=== PATIENT | female | born 1960 | race Caucasian/White ===

== ENCOUNTER 2022-07-31 07:09 | Inpatient (IN) | payer BC ==
[~2022-07-31] VITALS: Ht 157.5 cm; Wt 117.0 kg
[2022-07-31 08:09] LABS: Basophils # (auto) 0 10 ^3/uL (0-0.2); Basophils % (auto) 0.6 % (0.0-2.0); Eosinophils # (auto) 0 10 ^3/uL (0-0.8); Hemoglobin 13.9 g/dL (12.2-16.2); Lymphocytes # (auto) 3.5 10 ^3/uL (0.4-5.4); Lymphocytes % (auto) 47.4 % (10.0-50.0); Mean Corpuscular Hemoglobin 31.7 pg (28.0-32.0); Mean Corpuscular Hgb Conc. 33.8 g/dL (32.0-36.0); Mean Corpuscular Volume 93.7 fL (80.0-100.0); Monocytes # (auto) 0.7 10 ^3/uL (0-1.3); Monocytes % (auto) 9.6 % (0.0-12.0); Neutrophils # (auto) 3.1 10 ^3/uL (1.6-8.6); Neutrophils % (auto) 42.4 % (37.0-80.0); Nucleated Red Blood Cells % 0.4 %; Red Blood Cells 4.37 10^6/uL (4.0-5.20); Red Cell Distribution Width 13.1 % (11.8-14.3); White Blood Cell 7.3 10^3/uL (4.4-10.8)
[2022-07-31] MEDS ORDERED: ONDANSETRON HCL 4 MG/2 ML VIAL IV ONE (09:15)
[2022-07-31] MEDS ORDERED: MORPHINE SULFATE INJ 2 MG/ml SYRG IV ONE (09:15)
[2022-07-31 09:28] LABS: Potassium 3.3 mmol/L (3.5-5.1)
[2022-07-31 09:29] LABS: Albumin 3.3 g/dL (3.4-5.0); BUN/Creatinine Ratio 23.2; Bilirubin, Total 0.3 mg/dL (0.2-1.0); Calcium 8.8 mg/dL (8.5-10.1); Total Protein 6.4 g/dL (6.4-8.2)
[2022-07-31] MEDS ORDERED: SODIUM CHLORIDE 0.9% 1,000 ML IV ONE (10:00)
[2022-07-31] MEDS ORDERED: SODIUM CHLORIDE 0.9% 500 ML IV ONE (10:00)
[2022-07-31] MEDS ORDERED: NITROGLYCERIN 0.4 MG SL TAB SL PRN (11:00)
[2022-07-31] MEDS ORDERED: KETOROLAC TROMETH 30 MG/ML 1ML VIAL IV PRN (11:00)
[2022-07-31] MEDS ORDERED: DEXTROSE (50%) 50ML SYRG IV PRN (11:00)
[2022-07-31] MEDS ORDERED: MORPHINE SULFATE INJ 2 MG/ml SYRG IV PRN (11:00)
[2022-07-31] MEDS: ACCU-CHEK COMFORT CURVE STRIP VI SCH ×3 (12:27→22:50)
[2022-07-31] MEDS: InsuLIN REG 1unit/0.01ml Soln (100units/ml) SC SCH ×3 (12:30→22:49)
[2022-07-31] MEDS: IPRATROPIUM 0.5 MG PO SCH ×2 (14:45→22:00)
[2022-07-31] MEDS: ALBUTEROL 2.5 MG PO SCH ×2 (14:45→22:00)
[2022-07-31] MEDS ORDERED: ACETAMINOPHEN 500 MG TAB PO PRN (15:45)
[2022-07-31] MEDS: PHENobarbital 32.4 MG TAB PO SCH ×2 (15:59→23:06)
[2022-07-31] MEDS ORDERED: IPRATROPIUM BROM 0.5 MG/2.5ML INH SOL NEB ONE (16:15)
[2022-07-31] MEDS ORDERED: ALBUTEROL SULF 2.5 MG/0.5ML(0.5%) NEB SOLN NEB ONE (16:15)
[2022-07-31] MEDS: INSULIN LANTUS (GLARGINE) 1 /0.01ml (100units/ml) SC SCH (22:49)
[2022-07-31] MEDS ORDERED: POTASSIUM CHL 20 Meq TABLET PO ONE (23:00)
[2022-07-31] MEDS: PREGABALIN 25 MG CAP PO SCH (23:06)
[2022-07-31] MEDS: GABAPENTIN 400 MG CAP PO SCH (23:06)
[2022-07-31 23:50] VITALS: BP 111/75
[2022-08-01] VITALS (8 sets, daily range): BP systolic 103–145; BP diastolic 56–77
[2022-08-01] MEDS ORDERED: LEVO50TA7 PO (01:29)
[2022-08-01] MEDS ORDERED: FLUT500M2 (01:29)
[2022-08-01] MEDS ORDERED: HYDR-4611 (01:29)
[2022-08-01] MEDS ORDERED: ALBU108A5 INH (01:29)
[2022-08-01] MEDS ORDERED: HYDR-4072 PO (01:29)
[2022-08-01] MEDS ORDERED: PREG-109 PO (01:29)
[2022-08-01] MEDS ORDERED: ZAFI1TAB3 PO (01:29)
[2022-08-01] MEDS ORDERED: PRED20TA2 PO (01:29)
[2022-08-01] MEDS ORDERED: ATEN25TA PO (01:29)
[2022-08-01] MEDS ORDERED: [UNRECOGNIZED DRUG - CODE] PO (01:29)
[2022-08-01] MEDS ORDERED: ATOR20TA50 PO (01:29)
[2022-08-01] MEDS ORDERED: GABA400C11 PO (01:29)
[2022-08-01] MEDS ORDERED: PHEN-1148 PO (01:29)
[2022-08-01] MEDS ORDERED: FURO40TA4 PO (01:29)
[2022-08-01] MEDS ORDERED: LORA1TAB23 (01:29)
[2022-08-01] MEDS ORDERED: RABE20TA19 (01:29)
[2022-08-01] MEDS ORDERED: [UNRECOGNIZED DRUG - CODE] SC (01:29)
[2022-08-01] MEDS ORDERED: [UNRECOGNIZED DRUG - CODE] XX (01:29)
[2022-08-01] MEDS ORDERED: POTA-180 PO (01:29)
[2022-08-01] MEDS ORDERED: FLUC100T34 PO (01:29)
[2022-08-01] MEDS ORDERED: OMEP-445 (01:29)
[2022-08-01] MEDS ORDERED: GLUC-244 (01:29)
[2022-08-01] MEDS ORDERED: INSUINJ37 SC (01:29)
[2022-08-01] MEDS ORDERED: RANO1000 PO (01:29)
[2022-08-01] MEDS ORDERED: MOME1SPR2 NAS (01:29)
[2022-08-01] MEDS ORDERED: [UNRECOGNIZED DRUG - CODE] SC (01:29)
[2022-08-01 05:58] LABS: Basophils # (auto) 0 10 ^3/uL (0-0.2); Basophils % (auto) 0.6 % (0.0-2.0); Eosinophils # (auto) 0 10 ^3/uL (0-0.8); Hematocrit 39.3 % (36.0-46.0); Hemoglobin 13.2 g/dL (12.2-16.2); Lymphocytes # (auto) 3.6 10 ^3/uL (0.4-5.4); Lymphocytes % (auto) 47.6 % (10.0-50.0); Mean Corpuscular Hemoglobin 31.4 pg (28.0-32.0); Mean Corpuscular Hgb Conc. 33.6 g/dL (32.0-36.0); Mean Corpuscular Volume 93.6 fL (80.0-100.0); Monocytes # (auto) 0.8 10 ^3/uL (0-1.3); Monocytes % (auto) 10.1 % (0.0-12.0); Neutrophils # (auto) 3.2 10 ^3/uL (1.6-8.6); Neutrophils % (auto) 41.7 % (37.0-80.0); Nucleated Red Blood Cells % 0.4 %; Red Cell Distribution Width 13.2 % (11.8-14.3); White Blood Cell 7.6 10^3/uL (4.4-10.8)
[2022-08-01] MEDS: PHENobarbital 32.4 MG TAB PO SCH ×2 (06:00→22:26)
[2022-08-01] MEDS: ALBUTEROL 2.5 MG PO SCH (06:00)
[2022-08-01] MEDS: IPRATROPIUM 0.5 MG PO SCH (06:00)
[2022-08-01 06:11] LABS: Urine Bacteria FEW /hpf (None Seen); Urine Blood Negative /uL (Negative); Urine Specific Gravity 1.007 (1.001-1.035); Urine WBC 6 /hpf (0 - 5)
[2022-08-01] MEDS: ACCU-CHEK COMFORT CURVE STRIP VI SCH ×4 (06:12→22:30)
[2022-08-01] MEDS: InsuLIN REG 1unit/0.01ml Soln (100units/ml) SC SCH ×4 (06:15→22:29)
[2022-08-01 06:19] LABS: Potassium 4.4 mmol/L (3.5-5.1)
[2022-08-01 06:27] LABS: Albumin 3.3 g/dL (3.4-5.0); Calcium 9.2 mg/dL (8.5-10.1)
[2022-08-01 06:56] LABS: Bilirubin, Total 0.3 mg/dL (0.2-1.0); Total Protein 6.6 g/dL (6.4-8.2)
[2022-08-01] MEDS ORDERED: GABA400C PO (09:19)
[2022-08-01] MEDS: cefTRIAXone 1GM/50ML D5W 50 ML IV SCH (09:34)
[2022-08-01] MEDS: PREGABALIN 25 MG CAP PO SCH ×2 (09:35→22:27)
[2022-08-01] MEDS: GABAPENTIN 400 MG CAP PO SCH ×3 (09:35→22:27)
[2022-08-01] MEDS: PANTOPRAZOLE 40 MG TAB PO SCH (09:35)
[2022-08-01] MEDS: HYDROcodone-ACET 10/325MG TAB PO PRN (10:30)
[2022-08-01] MEDS: INSULIN LANTUS (GLARGINE) 1 /0.01ml (100units/ml) SC SCH ×2 (10:33→22:30)
[2022-08-01] MEDS: IPRATROPIUM BROM 0.5 MG/2.5ML INH SOL NEB SCH ×2 (14:24→21:47)
[2022-08-01] MEDS: ALBUTEROL SULF 2.5 MG/0.5ML(0.5%) NEB SOLN NEB SCH ×2 (14:25→21:47)
[2022-08-02] VITALS (7 sets, daily range): BP systolic 103–159; BP diastolic 64–98
[2022-08-02 06:23] LABS: Basophils # (auto) 0.1 10 ^3/uL (0-0.2); Basophils % (auto) 0.8 % (0.0-2.0); Eosinophils # (auto) 0 10 ^3/uL (0-0.8); Hemoglobin 13.9 g/dL (12.2-16.2); Lymphocytes # (auto) 3.1 10 ^3/uL (0.4-5.4); Lymphocytes % (auto) 47.3 % (10.0-50.0); Mean Corpuscular Hemoglobin 31.9 pg (28.0-32.0); Monocytes # (auto) 0.8 10 ^3/uL (0-1.3); Neutrophils # (auto) 2.7 10 ^3/uL (1.6-8.6); Neutrophils % (auto) 39.9 % (37.0-80.0); Nucleated Red Blood Cells % 0.9 %; Red Blood Cells 4.36 10^6/uL (4.0-5.20); Red Cell Distribution Width 13.2 % (11.8-14.3); White Blood Cell 6.6 10^3/uL (4.4-10.8)
[2022-08-02] MEDS: GABAPENTIN 400 MG CAP PO SCH ×3 (06:27→21:58)
[2022-08-02] MEDS: InsuLIN REG 1unit/0.01ml Soln (100units/ml) SC SCH ×4 (06:27→22:04)
[2022-08-02] MEDS: HYDROcodone-ACET 10/325MG TAB PO PRN ×3 (06:28→18:51)
[2022-08-02] MEDS: ACCU-CHEK COMFORT CURVE STRIP VI SCH ×4 (06:28→21:59)
[2022-08-02 07:07] LABS: Albumin 3.7 g/dL (3.4-5.0); BUN/Creatinine Ratio 13.5; Bilirubin, Total 0.3 mg/dL (0.2-1.0); Calcium 9.7 mg/dL (8.5-10.1); Potassium 4.5 mmol/L (3.5-5.1); Total Protein 6.9 g/dL (6.4-8.2)
[2022-08-02] MEDS: ALBUTEROL SULF 2.5 MG/0.5ML(0.5%) NEB SOLN NEB SCH ×3 (07:16→22:56)
[2022-08-02] MEDS: IPRATROPIUM BROM 0.5 MG/2.5ML INH SOL NEB SCH ×3 (07:16→22:56)
[2022-08-02] MEDS: PANTOPRAZOLE 40 MG TAB PO SCH (10:46)
[2022-08-02] MEDS: PREGABALIN 25 MG CAP PO SCH ×2 (10:47→21:57)
[2022-08-02] MEDS: cefTRIAXone 1GM/50ML D5W 50 ML IV SCH (10:49)
[2022-08-02] MEDS: INSULIN LANTUS (GLARGINE) 1 /0.01ml (100units/ml) SC SCH ×2 (11:05→22:03)
[2022-08-02] MEDS: PHENobarbital 32.4 MG TAB PO SCH (21:58)
[2022-08-03] VITALS (7 sets, daily range): BP systolic 118–162; BP diastolic 75–90
[2022-08-03] MEDS: GABAPENTIN 400 MG CAP PO SCH ×4 (05:49→21:36)
[2022-08-03 06:21] LABS: Basophils # (auto) 0 10 ^3/uL (0-0.2); Basophils % (auto) 0.4 % (0.0-2.0); Eosinophils # (auto) 0 10 ^3/uL (0-0.8); Hematocrit 42.9 % (36.0-46.0); Hemoglobin 14.5 g/dL (12.2-16.2); Lymphocytes # (auto) 4.5 10 ^3/uL (0.4-5.4); Lymphocytes % (auto) 48.9 % (10.0-50.0); Mean Corpuscular Hgb Conc. 33.9 g/dL (32.0-36.0); Mean Corpuscular Volume 94.5 fL (80.0-100.0); Monocytes % (auto) 10.7 % (0.0-12.0); Neutrophils # (auto) 3.6 10 ^3/uL (1.6-8.6); Nucleated Red Blood Cells % 0.2 %; Red Blood Cells 4.54 10^6/uL (4.0-5.20); Red Cell Distribution Width 13.4 % (11.8-14.3); White Blood Cell 9.1 10^3/uL (4.4-10.8)
[2022-08-03] MEDS: ACCU-CHEK COMFORT CURVE STRIP VI SCH ×4 (06:31→21:35)
[2022-08-03] MEDS: InsuLIN REG 1unit/0.01ml Soln (100units/ml) SC SCH ×4 (06:32→21:37)
[2022-08-03] MEDS: IPRATROPIUM BROM 0.5 MG/2.5ML INH SOL NEB SCH ×3 (07:02→22:34)
[2022-08-03] MEDS: ALBUTEROL SULF 2.5 MG/0.5ML(0.5%) NEB SOLN NEB SCH ×3 (07:02→22:34)
[2022-08-03 08:14] LABS: Albumin 3.8 g/dL (3.4-5.0); BUN/Creatinine Ratio 14.9; Bilirubin, Total 0.3 mg/dL (0.2-1.0); Calcium 9.8 mg/dL (8.5-10.1); Potassium 4.7 mmol/L (3.5-5.1); Total Protein 7.6 g/dL (6.4-8.2)
[2022-08-03] MEDS: PANTOPRAZOLE 40 MG TAB PO SCH (10:33)
[2022-08-03] MEDS: cefTRIAXone 1GM/50ML D5W 50 ML IV SCH (10:33)
[2022-08-03] MEDS: PREGABALIN 25 MG CAP PO SCH ×3 (10:33→21:38)
[2022-08-03] MEDS: INSULIN LANTUS (GLARGINE) 1 /0.01ml (100units/ml) SC SCH ×2 (10:42→21:37)
[2022-08-03] MEDS ORDERED: ACETAMINOPHEN 325 MG TAB PO PRN (12:00)
[2022-08-03] MEDS: PHENobarbital 32.4 MG TAB PO SCH ×2 (21:20→21:38)
[2022-08-04] VITALS (7 sets, daily range): BP systolic 118–160; BP diastolic 64–85
[2022-08-04] MEDS: InsuLIN REG 1unit/0.01ml Soln (100units/ml) SC SCH ×4 (06:48→21:51)
[2022-08-04] MEDS: ACCU-CHEK COMFORT CURVE STRIP VI SCH ×4 (06:50→21:50)
[2022-08-04] MEDS: IPRATROPIUM BROM 0.5 MG/2.5ML INH SOL NEB SCH ×3 (06:51→22:14)
[2022-08-04] MEDS: ALBUTEROL SULF 2.5 MG/0.5ML(0.5%) NEB SOLN NEB SCH ×3 (06:51→22:14)
[2022-08-04] MEDS ORDERED: GABA300C10 PO (08:45)
[2022-08-04] MEDS: PREGABALIN 25 MG CAP PO SCH (09:57)
[2022-08-04] MEDS: PANTOPRAZOLE 40 MG TAB PO SCH (09:57)
[2022-08-04] MEDS: cefTRIAXone 1GM/50ML D5W 50 ML IV SCH (09:57)
[2022-08-04] MEDS: INSULIN LANTUS (GLARGINE) 1 /0.01ml (100units/ml) SC SCH ×2 (10:09→21:50)
[2022-08-04] MEDS: GABAPENTIN 400 MG CAP PO SCH ×2 (14:09→21:50)
[2022-08-04] MEDS: PHENobarbital 32.4 MG TAB PO SCH (22:16)
[2022-08-05 05:00] VITALS: BP 119/71
[2022-08-05] MEDS: IPRATROPIUM BROM 0.5 MG/2.5ML INH SOL NEB SCH ×2 (06:00→14:00)
[2022-08-05] MEDS: ALBUTEROL SULF 2.5 MG/0.5ML(0.5%) NEB SOLN NEB SCH ×2 (06:00→14:00)
[2022-08-05] MEDS: GABAPENTIN 400 MG CAP PO SCH (06:16)
[2022-08-05] MEDS: InsuLIN REG 1unit/0.01ml Soln (100units/ml) SC SCH ×2 (06:17→11:43)
[2022-08-05] MEDS: ACCU-CHEK COMFORT CURVE STRIP VI SCH ×2 (06:17→11:45)
[2022-08-05 09:00] VITALS: BP 119/68
[2022-08-05] MEDS: cefTRIAXone 1GM/50ML D5W 50 ML IV SCH (09:09)
[2022-08-05] MEDS: PANTOPRAZOLE 40 MG TAB PO SCH (09:10)
[2022-08-05] MEDS: PREGABALIN 25 MG CAP PO SCH (09:10)
[2022-08-05] MEDS: INSULIN LANTUS (GLARGINE) 1 /0.01ml (100units/ml) SC SCH (09:20)
[2022-08-05 12:41] VITALS: BP 109/50
[2022-08-05 12:42] VITALS: BP 119/68
[2022-08-06 09:20] LABS: Hepatitis B Surface Antibody Negative (Negative)
== END 2022-08-05 14:00 | disposition home or self-care (01) | DRG 71 ==
LOC: ER 07:09 → TELE 11:14 → TELE-WESTW 23:40
PROVIDERS: ADMIT Orthopaedic Surgery; ATTEND Internal Medicine Cardiovascular Disease
DX: G93.41 Metabolic encephalopathy (principal); Z68.42 Body mass index [BMI] 45.0-49.9, adult; E11.9 Type 2 diabetes mellitus without complications; E78.5 Hyperlipidemia, unspecified; E87.6 Hypokalemia; E66.9 Obesity, unspecified; G47.33 Obstructive sleep apnea (adult) (pediatric); I11.0 Hypertensive heart disease with heart failure; I50.9 Heart failure, unspecified; J44.9 Chronic obstructive pulmonary disease, unspecified; R56.9 Unspecified convulsions; Z20.822 Contact with and (suspected) exposure to COVID-19; R33.9 Retention of urine, unspecified; R10.12 Left upper quadrant pain; R11.2 Nausea with vomiting, unspecified; Z88.8 Allergy status to other drugs, medicaments and biological substances; Z90.49 Acquired absence of other specified parts of digestive tract
CPT/HCPCS: 36415; 36600; 70450; 74176; 80053; 81001; 82140; 82805; 82962; 83690; 83880; 84484; 85025; 86703; 86706; 86803; 87340; 87426; 93005; 94640; 97110; 97116; 97163; 97530; G0378; J0696; J1815; J2405

== ENCOUNTER 2023-02-08 09:09 | Inpatient (IN) | payer BC ==
[~2023-02-08] VITALS: Ht 157.5 cm; Wt 120.1 kg
[2023-02-08] VITALS (10 sets, daily range): BP systolic 106–132; BP diastolic 53–72; PULSE 79–91; RESP 15–21; TEMP 97.6–99.7; O2SAT 93–100
[~2023-02-08 09:09] MED LIST: ALBU108A5 INH; ATEN25TA PO; ATOR20TA50 PO; FLUC100T34 PO; FLUT500M2; FURO40TA4 PO; GABA-1250 PO; GABA400C PO; GLUC-244; HYDR-4072 PO; HYDR-4611; INSUINJ37 SC; LEVO50TA7 PO; LORA-1123; MOME1SPR3 NAS; OMEP-445; PHEN-1148 PO; POTA-180 PO; PRED20TA2 PO; PREG-109 PO; RABE20TA19; RANO1000 PO; ZAFI1TAB3 PO; [UNRECOGNIZED DRUG - CODE] PO; [UNRECOGNIZED DRUG - CODE] SC; [UNRECOGNIZED DRUG - CODE] SC; [UNRECOGNIZED DRUG - CODE] XX
[2023-02-08 10:09] LABS: Basophils # (auto) 0.1 10 ^3/uL (0-0.2); Basophils % (auto) 0.3 % (0.0-2.0); Eosinophils # (auto) 0 10 ^3/uL (0-0.8); Hematocrit 42.2 % (36.0-46.0); Hemoglobin 13.7 g/dL (12.2-16.2); Lymphocytes # (auto) 2.8 10 ^3/uL (0.4-5.4); Mean Corpuscular Hemoglobin 30.9 pg (28.0-32.0); Mean Corpuscular Hgb Conc. 32.4 g/dL (32.0-36.0); Mean Corpuscular Volume 95.3 fL (80.0-100.0); Monocytes # (auto) 1.2 10 ^3/uL (0-1.3); Monocytes % (auto) 6.2 % (0.0-12.0); Neutrophils % (auto) 79.5 % (37.0-80.0); Nucleated Red Blood Cells % 0.1 %; Red Blood Cells 4.43 10^6/uL (4.0-5.20); Red Cell Distribution Width 13.5 % (11.8-14.3); White Blood Cell 20.1 10^3/uL (4.4-10.8)
[2023-02-08 10:12] LABS: Alanine Aminotransferase 23 U/L (7-40); Alkaline Phosphatase 111 U/L (46-116); Anion Gap 6.9 (5-15); Aspartate Aminotransferase 16 U/L (13-40); BUN/Creatinine Ratio 16.4 (10.0-20.0); Blood Urea Nitrogen 10 mg/dL (9-23); Calcium 9.2 mg/dL (8.5-10.1); Carbon Dioxide 27.1 mmol/L (20-30); Chloride 102 mmol/L (98-107); Glucose 158 mg/dL (74-106); Potassium 4.4 mmol/L (3.5-5.1); Sodium 136 mmol/L (136-145)
[2023-02-08 10:13] LABS: Albumin 4.2 g/dL (3.2-4.8); Bilirubin, Total 0.4 mg/dL (0.2-1.0); Total Protein 6.6 g/dL (5.7-8.2)
[2023-02-08] MEDS ORDERED: IOHEXOL 350 MG/ML 100ML IJ ONE (10:42)
[2023-02-08] MEDS ORDERED: ALBUTEROL SULF 2.5 MG/0.5ML(0.5%) NEB SOLN NEB PRN (12:00)
[2023-02-08] MEDS ORDERED: methylPREDNISolone SOD SUCC 40 MG/ML VL IV ONE (12:00)
[2023-02-08] MEDS ORDERED: MORPHINE SULFATE INJ 2 MG/ml SYRG IV PRN (12:15)
[2023-02-08] MEDS ORDERED: NITROGLYCERIN 0.4 MG SL TAB SL PRN (12:15)
[2023-02-08] MEDS ORDERED: DEXTROSE (50%) 50ML SYRG IV PRN (12:15)
[2023-02-08 12:27] LABS: Triglycerides 142 mg/dL (< 150)
[2023-02-08 12:28] LABS: LDL Cholesterol 70 mg/dL (< 100)
[2023-02-08 12:29] LABS: Cholesterol 128 mg/dL (< 200); HDL Cholesterol 42 mg/dL (40-59)
[2023-02-08] MEDS ORDERED: GABAPENTIN 300 MG CAP PO SCH (14:00)
[2023-02-08] MEDS: IPRATROPIUM BROM 0.5 MG/2.5ML INH SOL NEB SCH ×3 (14:11→22:00)
[2023-02-08] MEDS: ALBUTEROL SULF 2.5 MG/0.5ML(0.5%) NEB SOLN NEB SCH ×3 (14:11→22:00)
[2023-02-08] MEDS: InsuLIN REG 1unit/0.01ml Soln (100units/ml) SC SCH ×2 (17:00→22:29)
[2023-02-08 17:14] LABS: COVID19 ANTIGEN SOFIA FIA NEGATIVE (NEGATIVE)
[2023-02-08] MEDS: ACCU-CHEK COMFORT CURVE STRIP VI SCH ×2 (18:38→21:45)
[2023-02-08] MEDS: ACETAMINOPHEN 325 MG TAB PO PRN (18:39)
[2023-02-08] MEDS: methylPREDNISolone SOD SUCC 40 MG/ML VL IV SCH (21:42)
[2023-02-08] MEDS: GABAPENTIN 400 MG CAP PO SCH (21:43)
[2023-02-08] MEDS: PREGABALIN CAPSULE 75 MG CAP PO SCH (21:43)
[2023-02-08] MEDS: ATENOLOL 25 MG TAB PO SCH (21:48)
[2023-02-08] MEDS ORDERED: PHENobarbital 32.4 MG TAB PO SCH (22:00)
[2023-02-09] VITALS (17 sets, daily range): BP systolic 116–135; BP diastolic 65–79; PULSE 69–85; RESP 16–20; TEMP 97.8–98.7; O2SAT 92–100
[2023-02-09] MEDS: ACETAMINOPHEN 325 MG TAB PO PRN ×3 (01:40→22:46)
[2023-02-09] MEDS: ALBUTEROL SULF 2.5 MG/0.5ML(0.5%) NEB SOLN NEB SCH ×6 (01:58→22:00)
[2023-02-09] MEDS: IPRATROPIUM BROM 0.5 MG/2.5ML INH SOL NEB SCH ×6 (01:58→22:00)
[2023-02-09] MEDS: GABAPENTIN 400 MG CAP PO SCH ×3 (05:11→22:47)
[2023-02-09 06:04] LABS: Basophils # (auto) 0 10 ^3/uL (0-0.2); Basophils % (auto) 0.2 % (0.0-2.0); Eosinophils # (auto) 0 10 ^3/uL (0-0.8); Hematocrit 37.8 % (36.0-46.0); Hemoglobin 12.8 g/dL (12.2-16.2); Lymphocytes # (auto) 3.3 10 ^3/uL (0.4-5.4); Lymphocytes % (auto) 26.6 % (10.0-50.0); Mean Corpuscular Hemoglobin 32.3 pg (28.0-32.0); Mean Corpuscular Hgb Conc. 33.8 g/dL (32.0-36.0); Mean Corpuscular Volume 95.4 fL (80.0-100.0); Monocytes # (auto) 0.7 10 ^3/uL (0-1.3); Neutrophils # (auto) 8.3 10 ^3/uL (1.6-8.6); Neutrophils % (auto) 67.2 % (37.0-80.0); Red Blood Cells 3.96 10^6/uL (4.0-5.20); Red Cell Distribution Width 13.6 % (11.8-14.3); White Blood Cell 12.3 10^3/uL (4.4-10.8)
[2023-02-09] MEDS: ACCU-CHEK COMFORT CURVE STRIP VI SCH ×4 (06:14→22:53)
[2023-02-09] MEDS: InsuLIN REG 1unit/0.01ml Soln (100units/ml) SC SCH ×4 (06:15→22:55)
[2023-02-09 06:16] LABS: Alanine Aminotransferase 20 U/L (7-40); Alkaline Phosphatase 102 U/L (46-116); Aspartate Aminotransferase < 8 U/L (13-40); BUN/Creatinine Ratio 18.8 (10.0-20.0); Blood Urea Nitrogen 12 mg/dL (9-23); Calcium 9.4 mg/dL (8.5-10.1); Chloride 102 mmol/L (98-107); Glucose 196 mg/dL (74-106); Potassium 4.2 mmol/L (3.5-5.1); Sodium 137 mmol/L (136-145)
[2023-02-09 06:17] LABS: Bilirubin, Total 0.4 mg/dL (0.2-1.0); Total Protein 6.6 g/dL (5.7-8.2)
[2023-02-09 07:00] LABS: Anion Gap 7.6 (5-15); Carbon Dioxide 27.4 mmol/L (20-30)
[2023-02-09] MEDS: ENOXAPARIN SOD 40 MG/0.4 ML SYRINGE SC SCH (10:25)
[2023-02-09] MEDS: methylPREDNISolone SOD SUCC 40 MG/ML VL IV SCH ×2 (10:25→22:47)
[2023-02-09] MEDS: LEVOTHYROXINE SODIUM 50 MCG TAB PO SCH (10:26)
[2023-02-09] MEDS: ATENOLOL 25 MG TAB PO SCH ×2 (10:26→22:46)
[2023-02-09] MEDS: ATORVASTATIN 20 MG TAB PO SCH (10:26)
[2023-02-09] MEDS: PREGABALIN CAPSULE 75 MG CAP PO SCH ×2 (10:27→22:47)
[2023-02-09] MEDS ORDERED: AZITHROMYCIN 250 MG TAB PO ONE (15:45)
[2023-02-09] MEDS ORDERED: PANTOPRAZOLE 40 MG TAB PO ONE (20:15)
[2023-02-09] MEDS ORDERED: LORazepam 2MG/ML-1ML VIAL IV PRN (23:15)
[2023-02-10] VITALS (18 sets, daily range): BP systolic 117–151; BP diastolic 60–76; PULSE 70–83; RESP 12–22; TEMP 96.7–98.4; O2SAT 92–100
[2023-02-10] MEDS: GABAPENTIN 400 MG CAP PO SCH ×4 (01:36→22:08)
[2023-02-10 05:32] LABS: Basophils # (auto) 0 10 ^3/uL (0-0.2); Basophils % (auto) 0.2 % (0.0-2.0); Eosinophils # (auto) 0 10 ^3/uL (0-0.8); Hematocrit 37.7 % (36.0-46.0); Hemoglobin 12.8 g/dL (12.2-16.2); Lymphocytes # (auto) 3.1 10 ^3/uL (0.4-5.4); Lymphocytes % (auto) 25.9 % (10.0-50.0); Mean Corpuscular Hemoglobin 32.9 pg (28.0-32.0); Mean Corpuscular Volume 96.9 fL (80.0-100.0); Monocytes # (auto) 0.5 10 ^3/uL (0-1.3); Monocytes % (auto) 4.3 % (0.0-12.0); Neutrophils # (auto) 8.4 10 ^3/uL (1.6-8.6); Neutrophils % (auto) 69.6 % (37.0-80.0); Red Blood Cells 3.89 10^6/uL (4.0-5.20); Red Cell Distribution Width 13.7 % (11.8-14.3); White Blood Cell 12.1 10^3/uL (4.4-10.8)
[2023-02-10 05:45] LABS: Anion Gap 5.6 (5-15); Calcium 10.1 mg/dL (8.7-10.4); Carbon Dioxide 27.4 mmol/L (20-30); Chloride 103 mmol/L (98-107); Potassium 4.3 mmol/L (3.5-5.1); Sodium 136 mmol/L (136-145)
[2023-02-10 05:51] LABS: BUN/Creatinine Ratio 17.4 (10.0-20.0); Blood Urea Nitrogen 12 mg/dL (9-23); Glucose 188 mg/dL (74-106)
[2023-02-10 05:52] LABS: Magnesium 2.1 mg/dL (1.6-2.6)
[2023-02-10] MEDS: ACCU-CHEK COMFORT CURVE STRIP VI SCH ×4 (06:28→22:09)
[2023-02-10] MEDS: InsuLIN REG 1unit/0.01ml Soln (100units/ml) SC SCH ×4 (06:31→22:30)
[2023-02-10] MEDS: ALBUTEROL SULF 2.5 MG/0.5ML(0.5%) NEB SOLN NEB SCH ×5 (07:28→22:14)
[2023-02-10] MEDS: IPRATROPIUM BROM 0.5 MG/2.5ML INH SOL NEB SCH ×5 (07:28→22:14)
[2023-02-10] MEDS: AZITHROMYCIN 250 MG TAB PO SCH (09:38)
[2023-02-10] MEDS: PREGABALIN CAPSULE 75 MG CAP PO SCH (09:39)
[2023-02-10] MEDS: PANTOPRAZOLE 40 MG TAB PO SCH (09:39)
[2023-02-10] MEDS: ATENOLOL 25 MG TAB PO SCH ×2 (09:39→22:09)
[2023-02-10] MEDS: LEVOTHYROXINE SODIUM 50 MCG TAB PO SCH (09:39)
[2023-02-10] MEDS: ATORVASTATIN 20 MG TAB PO SCH (09:39)
[2023-02-10] MEDS: ENOXAPARIN SOD 40 MG/0.4 ML SYRINGE SC SCH (09:40)
[2023-02-10] MEDS: methylPREDNISolone SOD SUCC 40 MG/ML VL IV SCH ×2 (09:40→22:07)
[2023-02-10] MEDS ORDERED: INSULIN LANTUS (GLARGINE) 1 /0.01ml (100units/ml) SC ONE (11:30)
[2023-02-10] MEDS: LORazepam 0.5 MG TAB PO PRN ×2 (11:53→22:08)
[2023-02-10] MEDS ORDERED: PHENobarbital 32.4 MG TAB PO SCH (22:00)
[2023-02-10] MEDS: ACETAMINOPHEN 325 MG TAB PO PRN (22:09)
[2023-02-11] VITALS (15 sets, daily range): BP systolic 108–159; BP diastolic 50–94; PULSE 65–85; RESP 20–22; TEMP 97.5–98.7; O2SAT 67–100
[2023-02-11] MEDS: ALBUTEROL SULF 2.5 MG/0.5ML(0.5%) NEB SOLN NEB SCH ×5 (06:05→23:24)
[2023-02-11] MEDS: IPRATROPIUM BROM 0.5 MG/2.5ML INH SOL NEB SCH ×5 (06:05→23:24)
[2023-02-11] MEDS: ACCU-CHEK COMFORT CURVE STRIP VI SCH ×4 (06:07→22:24)
[2023-02-11] MEDS: InsuLIN REG 1unit/0.01ml Soln (100units/ml) SC SCH ×4 (06:08→22:00)
[2023-02-11] MEDS: INSULIN LANTUS (GLARGINE) 1 /0.01ml (100units/ml) SC SCH (06:13)
[2023-02-11] MEDS: GABAPENTIN 400 MG CAP PO SCH ×3 (06:17→22:17)
[2023-02-11 07:02] LABS: Chloride 103 mmol/L (98-107); Potassium 4.6 mmol/L (3.5-5.1); Sodium 137 mmol/L (136-145)
[2023-02-11 07:03] LABS: Calcium 10.1 mg/dL (8.5-10.1)
[2023-02-11 07:08] LABS: BUN/Creatinine Ratio 23.9 (10.0-20.0); Blood Urea Nitrogen 16 mg/dL (9-23); Glucose 181 mg/dL (74-106)
[2023-02-11 07:24] LABS: Basophils # (auto) 0 10 ^3/uL (0-0.2); Basophils % (auto) 0.2 % (0.0-2.0); Eosinophils # (auto) 0 10 ^3/uL (0-0.8); Hematocrit 39.7 % (36.0-46.0); Hemoglobin 13.4 g/dL (12.2-16.2); Lymphocytes # (auto) 3.3 10 ^3/uL (0.4-5.4); Lymphocytes % (auto) 28.2 % (10.0-50.0); Mean Corpuscular Hemoglobin 32.7 pg (28.0-32.0); Mean Corpuscular Hgb Conc. 33.8 g/dL (32.0-36.0); Mean Corpuscular Volume 96.7 fL (80.0-100.0); Monocytes # (auto) 0.5 10 ^3/uL (0-1.3); Monocytes % (auto) 4.5 % (0.0-12.0); Neutrophils # (auto) 7.9 10 ^3/uL (1.6-8.6); Neutrophils % (auto) 67.1 % (37.0-80.0); Nucleated Red Blood Cells % 0.1 %; Red Blood Cells 4.11 10^6/uL (4.0-5.20); Red Cell Distribution Width 13.6 % (11.8-14.3); White Blood Cell 11.8 10^3/uL (4.4-10.8)
[2023-02-11 07:33] LABS: Anion Gap 8 (5-15); Carbon Dioxide 26 mmol/L (20-30)
[2023-02-11] MEDS: AZITHROMYCIN 250 MG TAB PO SCH (09:07)
[2023-02-11] MEDS: LEVOTHYROXINE SODIUM 50 MCG TAB PO SCH (09:07)
[2023-02-11] MEDS: ENOXAPARIN SOD 40 MG/0.4 ML SYRINGE SC SCH (09:07)
[2023-02-11] MEDS: predniSONE 20 MG TAB PO SCH (09:08)
[2023-02-11] MEDS: ATENOLOL 25 MG TAB PO SCH ×2 (09:09→22:17)
[2023-02-11] MEDS: PANTOPRAZOLE 40 MG TAB PO SCH (09:10)
[2023-02-11] MEDS: ATORVASTATIN 20 MG TAB PO SCH (09:26)
[2023-02-11] MEDS: ACETAMINOPHEN 325 MG TAB PO PRN (09:26)
[2023-02-11] MEDS ORDERED: PRED20TA2 PO (10:46)
[2023-02-11] MEDS ORDERED: LEVO750T40 PO (10:46)
[2023-02-11] MEDS ORDERED: PHENobarbital 32.4 MG TAB PO SCH ×3 (11:30→22:00)
[2023-02-11 11:33] LABS: Urine Bacteria NONE SEEN /hpf (None Seen); Urine Blood Negative /uL (Negative); Urine Clarity Clear (Clear); Urine Color Colorless (Yellow); Urine Protein, UAD Negative (Negative); Urine Specific Gravity 1.014 (1.001-1.035); Urine Urobilinogen Normal (Negative); Urine WBC 51 /hpf (0 - 5)
[2023-02-11] MEDS ORDERED: PHENobarbital 32.4 MG TAB PO ONE (11:45)
[2023-02-11] MEDS: LORazepam 0.5 MG TAB PO PRN (17:07)
[2023-02-11] MEDS ORDERED: cefTRIAXone 1GM/50ML D5W 50 ML IV ONE (18:00)
[2023-02-12] VITALS (11 sets, daily range): BP systolic 115–154; BP diastolic 28–61; PULSE 74–85; RESP 18–20; TEMP 36.7; O2SAT 91–99
[2023-02-12] MEDS: ACETAMINOPHEN 325 MG TAB PO PRN (02:31)
[2023-02-12] MEDS: LORazepam 0.5 MG TAB PO PRN (02:31)
[2023-02-12] MEDS: IPRATROPIUM BROM 0.5 MG/2.5ML INH SOL NEB SCH ×3 (06:00→14:24)
[2023-02-12] MEDS: ALBUTEROL SULF 2.5 MG/0.5ML(0.5%) NEB SOLN NEB SCH ×3 (06:00→14:25)
[2023-02-12] MEDS: GABAPENTIN 400 MG CAP PO SCH ×2 (06:38→14:39)
[2023-02-12] MEDS: INSULIN LANTUS (GLARGINE) 1 /0.01ml (100units/ml) SC SCH (06:39)
[2023-02-12] MEDS: InsuLIN REG 1unit/0.01ml Soln (100units/ml) SC SCH ×2 (06:40→12:17)
[2023-02-12] MEDS: ACCU-CHEK COMFORT CURVE STRIP VI SCH ×2 (06:43→12:16)
[2023-02-12] MEDS ORDERED: FUROSEMIDE 40 MG TAB PO ONE (08:45)
[2023-02-12] MEDS ORDERED: HYDROcodone-ACET 5/325MG TAB PO PRN (08:45)
[2023-02-12] MEDS: LEVOTHYROXINE SODIUM 50 MCG TAB PO SCH (09:20)
[2023-02-12] MEDS: predniSONE 20 MG TAB PO SCH (09:20)
[2023-02-12] MEDS: PANTOPRAZOLE 40 MG TAB PO SCH (09:20)
[2023-02-12] MEDS: AZITHROMYCIN 250 MG TAB PO SCH (09:20)
[2023-02-12] MEDS: ATORVASTATIN 20 MG TAB PO SCH (09:20)
[2023-02-12] MEDS: ENOXAPARIN SOD 40 MG/0.4 ML SYRINGE SC SCH (09:21)
[2023-02-12] MEDS: ATENOLOL 25 MG TAB PO SCH (09:21)
[2023-02-12] MEDS ORDERED: DIPHENOXYLATE W/ATROPINE 2.5 MG TAB PO ONE (14:15)
[2023-02-12] MEDS ORDERED: CHOLESTYRAMINE 4 GM POWDER GT ONE (14:15)
[2023-02-13] MEDS ORDERED: FUROSEMIDE 40 MG TAB PO SCH (10:00)
== END 2023-02-12 17:44 | disposition home or self-care (01) | DRG 193 ==
LOC: ER 09:09 → TELE 12:07 → TELE-EAST 18:03
PROVIDERS: ADMIT Nurse Practitioner Family; ATTEND Internal Medicine Cardiovascular Disease
DX: J18.9 Pneumonia, unspecified organism (principal); J96.21 Acute and chronic respiratory failure with hypoxia; J44.1 Chronic obstructive pulmonary disease with (acute) exacerbation; G40.109 Localization-related (focal) (partial) symptomatic epilepsy and epileptic syndromes with simple partial seizures, not intractable, without status epilepticus; Z68.42 Body mass index [BMI] 45.0-49.9, adult; J98.11 Atelectasis; N39.0 Urinary tract infection, site not specified; I50.40 Unspecified combined systolic (congestive) and diastolic (congestive) heart failure; J44.0 Chronic obstructive pulmonary disease with (acute) lower respiratory infection; Z20.822 Contact with and (suspected) exposure to COVID-19; I11.0 Hypertensive heart disease with heart failure; E66.01 Morbid (severe) obesity due to excess calories; D72.829 Elevated white blood cell count, unspecified; G47.30 Sleep apnea, unspecified; E78.5 Hyperlipidemia, unspecified; E03.9 Hypothyroidism, unspecified; E11.42 Type 2 diabetes mellitus with diabetic polyneuropathy; K59.00 Constipation, unspecified; Z79.899 Other long term (current) drug therapy; Z82.49 Family history of ischemic heart disease and other diseases of the circulatory system; Z82.5 Family history of asthma and other chronic lower respiratory diseases; Z90.49 Acquired absence of other specified parts of digestive tract; Z88.8 Allergy status to other drugs, medicaments and biological substances
CPT/HCPCS: 36415; 71275; 80048; 80053; 80061; 80184; 81001; 82962; 83036; 83605; 83735; 83880; 84443; 84484; 85025; 85379; 87040; 87070; 87077; 87186; 87205; 87426; 93352; 94640; 96374; 99291; G0378; J0696; J1815